=== PATIENT | female | born 1955 | race Caucasian/White ===

== ENCOUNTER 2022-08-27 10:11 | Day surgery (SDC) | payer OTHER ==
[2022-08-26 13:07] LABS: Absolute Lymphocytes (CBC) 1.2 K/uL (0.7-4.9); Hematocrit 41.2 % (36.0-45.0); Lymphocytes % 20.1 % (15.3-44.8); MCV 94.3 fL (80-100); MPV 7.4 fL (7.6-11.3); RBC Red Blood Cell Count 4.37 M/uL (3.86-4.86)
[2022-08-26 13:16] LABS: Potassium 4.2 mEq/L (3.5-5.1)
[2022-08-27] MEDS ORDERED: CEFAZOLIN SODIUM 1 GM/VIAL ONE (10:31)
[2022-08-27] MEDS ORDERED: Ringers Lactate 1,000 ML IV ONE ×2 (10:31→12:43)
[2022-08-27] MEDS ORDERED: MIDAZOLAM HCL 2 MG/2 ML INJ ONE (10:51)
[2022-08-27] MEDS ORDERED: SCOPOLAMINE HYDROBROMIDE PATCH TD ONE (10:52)
[2022-08-27] MEDS ORDERED: dexAMETHasone 10 MG/ML VIAL ONE ×2 (11:41→12:11)
[2022-08-27] MEDS ORDERED: LIDOCAINE 1% MPF 5 ML VIAL ONE (11:41)
[2022-08-27] MEDS ORDERED: FENTANYL CITR 100 MCG/2 ML ONE (11:41)
[2022-08-27] MEDS ORDERED: EPINEPHRINE/PF 1 MG/ML AMP ONE (11:41)
[2022-08-27] MEDS ORDERED: propofoL 200 MG/20 ML VIAL IV ONE (12:01)
[2022-08-27] MEDS ORDERED: LIDOCAINE 2% MPF 5 ML VIAL ONE ×2 (12:01→12:11)
[2022-08-27] MEDS ORDERED: KETAMINE HCL IN 0.9 % NACL 50 MG/5 ML SYRINGE IV ONE (12:10)
[2022-08-27] MEDS ORDERED: KETOROLAC 30 MG/ML INJ ONE (12:11)
[2022-08-27] MEDS ORDERED: ONDANSETRON 4 MG/2 ML VIAL ONE (12:11)
[2022-08-27] MEDS ORDERED: NS 0.9% VIAL 10 ML ONE ×2 (12:35→12:45)
[2022-08-27] MEDS ORDERED: EPHEDRINE SULF 50 MG/ML VIAL ONE (12:45)
--- NOTE | 2022-08-27 13:34 | RAD REPORT ---
EXAM DESCRIPTION: RAD - Fluoroscopy <1 Hour - 08/27/2022 1:05 pm CLINICAL HISTORY: ORIF RT WRIST COMPARISON: No comparisons FINDINGS: Fluoroscopy time: 0.9 minutes
--- NOTE | 2022-08-27 14:49 | EKG ---
Test Date: 2022-08-26 Test Time: 12:54:12 Medical Concierge: EZRA MEASUREMENT RESULTS: Intervals: Rate: 65 MS: 148 QRSD: 78 QT: 374 QTc: 388 [place]: P: 76 MS: 148 QRS: 89 T: 61 INTERPRETIVE STATEMENTS: Normal sinus rhythm Normal ECG No previous ECG available for comparison Electronically Signed On 08-27-22 14:44:44 CDT by Kurt Pimentel
[2022-08-27 14:59] VITALS: BP 125/63; TEMP 97; O2SAT 97
--- NOTE | 2022-08-27 20:35 | OP ---
Date of Procedure: 08/27/2022 Surgeon: Douglas Soriano MD Preoperative Diagnosis: Right distal radius fracture with 2 intraarticular fragments as well as medi an nerve paresthesias. Postoperative Diagnosis: Right distal radius fracture with 2 intraarticular fragments as well as med jacqueline nerve paresthesias. Procedures: 1.Right distal radius open reduction internal fixation using the Acumed 2 volar radius plating set. 2.Open carpal tunnel release. Estimated Blood Loss: Less than 10 cc. Complications: There were no complications. Specimen: No pathology specimens sent. Indications: Ms. Akers is a 67-year-old who unfortunately fell injuring her right upper extremity. She came to see me in my office where she was in a wrist brace. X-rays were reviewed, which demons trated a displaced intraarticular fracture of the distal radius. It was not highly displaced and she is 67, and we discussed risks, benefits, and alternatives of placing this in a cast and continuing c lose treatment. However, the patient says that she is highly active and also was complaining of some tingling of her thumb, although her index and long finger were essentially unaffected. Based on the patient's desires as well as slight median nerve paresthesias, decision was made to move forward wit h open reduction internal fixation of distal radius paired with a carpal tunnel release. She says saul garcia understands everything as presented and wishes to proceed. It should be noted that seeing her in t he holding area, she said that she is now starting to have some numbness of her index and long finger s and apparently the tingling has increased, although it is definitely not dense and no sign of criti soniya or severe carpal tunnel syndrome at this time. We will, however, pursue when talking to her in t he holding area, the carpal tunnel release. Description Of Procedure: The patient was taken to operating room and placed in supine position. Saul garcia had general anesthesia obtained by Anesthesia staff. Following this, a well-padded tourniquet plac ed on superior right arm. Her right upper extremity was then prepped and draped in usual sterile fas hion for procedure. Following this the arm was then elevated, but not exsanguinated and tourniquet w as raised. A standard volar approach of Дмитрий was then taken down carefully through skin and soft ti ssues with meticulous hemostasis being maintained using bipolar electrocautery. This leads down to t he tendon of the flexor carpi radialis. This was then exposed and retracted radialward to protect th e radial artery and the underlying sheath was then exported. The muscle belly and tendon of the flex or pollicis longus was identified and retracted ulnarward to protect the median nerve. This leads do wn to the pronator quadratus. The pronator quadratus was split in its midsubstance and gently moved off the radius using a wooden handle elevator, which decreased the fracture site. There was found to be some free fragmentation especially on the ulnar aspect. This was reduced and the remainder of th e wrist was reduced using manual traction and standard techniques. After this, the Acumed 2 volar ra dius plating set was then placed in standard fashion. This appeared to hold the reduction well and a ll screws were checked under biplanar C-arm radiography to ensure there was correct length and positi on. After this, attention was then turned to the carpal tunnel and an incision was made, which paral lels the thenar crease, which was not connected to the previous incision. This was taken down carefu lly through skin and soft tissues with meticulous hemostasis being maintained using Bovie electrocaut brie. This leads to the palmar fascia. The palmar fascia was then divided longitudinally. After thi s any obstructions of the transverse carpal ligament were gently swept to the side, which allowed for excellent visualization of the transverse carpal ligament. A small incision was made in the transve rse carpal ligament and it was then expanded in the proximal to distal direction until there were no constricting bands. It was then divided in a distal to proximal direction until there were no constr icting bands. At no time were any sharp instruments placed outside the direct operative field. Foll owing this, both incisions were closed. The tourniquet was dropped. She was placed in a well-padded sterile dressing as well a s a volar wrist splint. /UGO Voice ID: [id number] Report ID: [id number]
== END 2022-08-27 14:55 | disposition home or self-care (01) ==
LOC: OR 10:11
PROVIDERS: ATTEND Orthopaedic Surgery
PROC: 01N50ZZ Release Median Nerve, Open Approach (ICD-10-PCS; principal; 2022-08-27 13:00)
PROC: 0PSH04Z Reposition Right Radius with Internal Fixation Device, Open Approach (ICD-10-PCS; 2022-08-27 13:00)
DX: S52.571A Other intraarticular fracture of lower end of right radius, initial encounter for closed fracture (principal); G56.01 Carpal tunnel syndrome, right upper limb
CPT/HCPCS: 93005; 85025; 80048; 36415; 64721; 25608; A4216 ×2; J2704; J0171; J2001 ×3; J2250; J3010; J1100 ×2; J2405; J7120 ×2; J0690; 76000